=== PATIENT | female | born 2000 | race Two or more races ===

== ENCOUNTER 2024-04-29 10:38 | Inpatient (IN) | payer MEDICAID ==
[~2024-04-29] VITALS: Ht 165.1 cm; Wt 65.0 kg
[~2024-04-29 10:38] MED LIST: ACET-1304 PO; NITR-87 PO
--- NOTE | 2024-04-29 11:29 | DVH ---
BIOPHYSICAL PROFILE HISTORY: PIH TECHNIQUE: Multiple transabdominal real-time grayscale sonographic images through the gravid uterus of the fetus with duplex Doppler color flow and M-mode spectral analysis FINDINGS: BIOPHYSICAL PROFILE: breathing score: 2 movement score: 2 tone score: 2 Quantitative ROJELIO score: 2 (ROJELIO: 13.2 Cm.) Total score: 8 The cervix not well visualized. Single live fetus in vertex presentation. heart rate 151 beats per minute. Anterior placenta without previa or abruption IMPRESSION: Biophysical profile score: 8
[2024-04-29 11:56] LABS: Basophils # (auto) 0.2 10 ^3/uL (0-0.2); Eosinophils # (auto) 0.1 10 ^3/uL (0-0.8); Hemoglobin 8.2 g/dL (12.2-16.2); Lymphocytes # (auto) 2.9 10 ^3/uL (0.4-5.4); Lymphocytes % (auto) 20.9 % (10.0-50.0); Mean Corpuscular Hemoglobin 21.4 pg (28.0-32.0); Monocytes # (auto) 0.7 10 ^3/uL (0-1.3); Nucleated Red Blood Cells % 0.1 %
[2024-04-29 11:57] LABS: Basophils % (auto) 1.4 % (0.0-2.0); Eosinophils % (auto) 0.6 % (0.0-7.0); Hematocrit 26.1 % (36.0-46.0); Mean Corpuscular Hgb Conc. 31.5 g/dL (32.0-36.0); Mean Corpuscular Volume 67.8 fL (80.0-100.0); Monocytes % (auto) 4.9 % (0.0-12.0); Neutrophils % (auto) 72.2 % (37.0-80.0); Platelet Count (auto) 319 10^3/uL (140-450); Red Blood Cells 3.85 10^6/uL (4.0-5.20); Red Cell Distribution Width 19.6 % (11.8-14.3); White Blood Cell 13.9 10^3/uL (4.4-10.8)
[2024-04-29 12:10] LABS: INR 0.94 (0.9-1.15); Partial Thromboplastin Time 22.9 SEC (24.5-34.5)
[2024-04-29 12:32] LABS: Alanine Aminotransferase 37 U/L (7-40); Albumin 4.3 g/dL (3.2-4.8); Alkaline Phosphatase 230 U/L (46-116); Anion Gap 9 (5-15); Aspartate Aminotransferase 30 U/L (13-40); BUN/Creatinine Ratio 10.4 (10.0-20.0); Bilirubin, Total 0.4 mg/dL (0.2-1.0); Blood Urea Nitrogen 7 mg/dL (9-23); Calcium 9.8 mg/dL (8.7-10.4); Carbon Dioxide 21 mmol/L (20-31); Chloride 105 mmol/L (98-107); Glucose 88 mg/dL (74-106); Potassium 4.4 mmol/L (3.5-5.1); Sodium 135 mmol/L (136-145); Uric Acid 3.6 mg/dL (3.1-7.8)
[2024-04-29 12:39] LABS: Platelet Estimate Adequate
[2024-04-29 12:40] LABS: Hypochromia Moderate
[2024-04-29 12:45] LABS: Urine Bacteria FEW /hpf (None Seen); Urine Blood Negative /uL (Negative); Urine Clarity Turbid (Clear); Urine Color Light-Yellow (Yellow); Urine Protein, UAD TRACE (Negative); Urine Specific Gravity 1.008 (1.001-1.035); Urine Urobilinogen Normal (Negative); Urine WBC 44 /hpf (0 - 5)
[2024-04-29 13:02] LABS: Protein, Urine 43.8 mg/dL (1-14)
[2024-04-29 13:05] LABS: Creatinine, Urine 45.72 mg/dL (30.0-125.0); Urine Protein/Creatinine Ratio 0.96
[2024-04-29] MEDS ORDERED: LACTATED RINGER'S 1,000 ML IV SCH (17:15)
[2024-04-29] MEDS ORDERED: LIDOCAINE 2%HCL (LOCAL ANESTH.) INJ 20ML MDV IJ PRN (17:15)
[2024-04-29] MEDS ORDERED: BUTORPHANOL TARTRATE 2 MG/1 ML VIAL IV PRN ×2 (17:15)
[2024-04-29] MEDS ORDERED: hydrALAZINE HCL 20 MG/ML VL IV PRN (17:30)
[2024-04-29] MEDS: LABETALOL HCL 200 MG TAB PO ONE (17:36)
--- NOTE | 2024-04-29 17:44 | DVHHP2 ---
OB CC & HPI Date Date of Admission: Apr 29, 2024 Patient Identification: : 1 Para: 0 EDC: May 12, 2024 EGA: 38.1 Chief Complaints: Reason for admission: induction of labor Indication for induction: medical complication (preeclampsia) History of Present Complaints 24yo IUP@38.1wks was sent down from Dr. Adams's office for preeclampsia labs due to elevated BPs. Pt admitted to L&D for IOL for preeclampsia. Denies UCs/LOF/VB/BACON/vision changes/RUQ pain. Endorses +FM. Pt is a vegetarian. PNC: Routine PNC at [facility] OB, adequate visits, PNC complicated by iron deficiency anemia and now preeclampsia. GTT wnl, dating based on LMP c/w 17wk sono, GBS positive. Past Medical History Cardiac: No pertinent Hx Pulmonary: No pertinent Hx Central Nervous System: No pertinent Hx GI: No pertinent Hx Hemotology/Oncology: Iron deficiency anemia Hepatobiliary: No pertinent Hx Psychiatric: No pertinent Hx Musculoskeletal: No pertinent Hx Rheumotologic: No pertinent Hx Infectious Disease: No peritnent Hx ENT: No pertinent Hx Renal/: No pertinent Hx Endocrine: No pertinent Hx Dermatology: No pertinent Hx Past Surgical History: No pertinent Hx OB History OB History Care: Good Care Ultrasounds: Normal mid trimester US Obstetrical Complications: Pre-eclampsia Allergies: Coded Allergies: NO KNOWN ALLERGIES (Unverified , 04/29/24) Home Meds Discontinued Scripts Acetaminophen (Tylenol Extra Strength Fo) 500 Mg Tab, 500 MG PO TID, #30 TAB Prov:NUNU WALKER 09/20/23 Nitrofurantoin Monohydrate Mac (Macrobid) 100 Mg Cap, 100 MG PO BID, #14 CAP Prov:NUNU WALKER 09/20/23 Home Meds PNV and iron Current Medications Current Medications Medications (Trade) Dose Ordered Sig/Kristyn Route PRN Reason Start Time Stop Time Status Last Admin Labetalol HCl (Normodyne Tablet) 100 mg Q12HR PO 04/29/24 22:00 Lactated Ringer's 1,000 ml @ 125 mls/hr Q8H IV 04/29/24 17:15 Penicillin G Potassium 1412148 units/Dextrose 50 ml @ 100 mls/hr Q4H IV 04/29/24 21:15 Witch Larissa (Tucks) 1 pad PRN PRN TOP PERINEAL AREA DISCOMFORT 04/29/24 17:15 Sodium Lauryl Sulfate (Phisoderm) 240 ml PRN PRN TOP PERINEAL AREA DISCOMFORT 04/29/24 17:15 Benzocaine (Dermoplast) 1 applic PRN PRN TOP PERINEAL AREA DISCOMFORT 04/29/24 17:15 Butorphanol Tartrate (Stadol Injection) 1 mg Q4HPRN PRN IV MODERATE PAIN (4-6 PAIN SCALE) 04/29/24 17:15 Butorphanol Tartrate (Stadol Injection) 2 mg Q4HPRN PRN IV SEVERE PAIN (7-10 PAIN SCALE) 04/29/24 17:15 Lidocaine HCl (Xylocaine) 20 ml ONCE PRN IJ PERINEAL AREA DISCOMFORT 04/29/24 17:15 Misoprostol (Cytotec) 50 mcg Q4HPRN PRN PO CERVICAL RIPENING 04/29/24 17:30 Hydralazine HCl (Apresoline Injection) 5 mg Q20MP PRN IV SBP >160 DBP >95 04/29/24 17:30 Family & Social History Family/Social History Past Family/Social History: denies Blood Type: B+ Rubella: not immune RPR/VDRL: Negative GBS Status: Positive HBsAG: Negative Review of Systems Comments headache Constitutional: No symptom reported Ears, Nose, & Throat: No symptom reported Eyes: No symptom reported Pulmonary/Respiratory: No symptom reported Cardiovascular: No symptom reported Gastrointestinal: No symptom reported Genitourinary: No symptom reported Musculoskeletal: No symptom reported Skin: No symptom reported Psychiatric: No symptom reported Endocrine: No symptom reported Hemotologic/Lymphatic: No symptom reported OB Admission Exam Physical Exam Vitals: Laboratory Tests Test 04/29/24 11:00 04/29/24 11:25 04/29/24 17:27 Range/Units Urine Color Light-yellow Yellow Urine Clarity Turbid H Clear Urine pH 6.0 5.0-9.0 Urine Specific [place] 1.008 1.001-1.035 Urine Protein Trace H Negative Urine Ketones Negative Negative Urine Blood Negative Negative /uL Urine Nitrite Negative Negative Urine Bilirubin Negative Negative Urine Urobilinogen Normal Negative mg/dL Urine Leukocyte Esterase 3+ Negative /uL Urine RBC 2 0 - 4 /hpf Urine WBC 44 0 - 5 /hpf Urine Squamous Epithelial Cells Mod <5 /hpf Urine Bacteria Few H None Seen /hpf Urine Creatinine 45.72 30.0-125.0 mg/dL Urine Protein/Creatinine Ratio 0.96 Urine Glucose Normal Normal mg/dL Urine Total Protein 43.8 H 1-14 mg/dL Urine Opiates Screen Neg NEGATIVE Urine Fentanyl Screen Neg NEGATIVE Urine Barbiturates Screen Neg NEGATIVE Urine Phencyclidine Screen Neg NEGATIVE Urine Amphetamines Screen Neg NEGATIVE Urine Benzodiazepines Screen Neg NEGATIVE Urine Cocaine Screen Neg NEGATIVE Urine Cannabinoids Screen Neg NEGATIVE White Blood Count 13.9 H 4.4-10.8 10^3/uL Red Blood Count 3.85 L 4.0-5.20 10^6/uL Hemoglobin 8.2 L 12.2-16.2 g/dL Hematocrit 26.1 L 36.0-46.0 % Mean Corpuscular Volume 67.8 L 80.0-100.0 fL Mean Corpuscular Hemoglobin 21.4 L 28.0-32.0 pg Mean Corpuscular Hemoglobin Concent 31.5 L 32.0-36.0 g/dL Red Cell Distribution Width 19.6 H 11.8-14.3 % Platelet Count 319 140-450 10^3/uL Mean Platelet Volume 7.7 6.9-10.8 fL Neutrophils (%) (Auto) 72.2 37.0-80.0 % Lymphocytes (%) (Auto) 20.9 10.0-50.0 % Monocytes (%) (Auto) 4.9 0.0-12.0 % Eosinophils (%) (Auto) 0.6 0.0-7.0 % Basophils (%) (Auto) 1.4 0.0-2.0 % Neutrophils # (Auto) 10.0 H 1.6-8.6 10 ^3/uL Lymphocytes # (Auto) 2.9 0.4-5.4 10 ^3/uL Monocytes # (Auto) 0.7 0-1.3 10 ^3/uL Eosinophils # (Auto) 0.1 0-0.8 10 ^3/uL Basophils # (Auto) 0.2 0-0.2 10 ^3/uL Nucleated Red Blood Cells 0.1 % Platelet Estimate Adequate Hypochromasia (manual) Moderate Microcytosis Marked Prothrombin Time 10.0 9.3-11.8 sec Prothrombin Time INR 0.94 0.9-1.15 Activated Partial Thromboplast Time 22.9 L 24.5-34.5 SEC Sodium Level 135 L 136-145 mmol/L Potassium Level 4.4 3.5-5.1 mmol/L Chloride Level 105 98-107 mmol/L Carbon Dioxide Level 21 20-31 mmol/L Anion Gap 9 5-15 Blood Urea Nitrogen 7 L 9-23 mg/dL Creatinine 0.67 0.550-1.02 mg/dL Glomerular Filtration Rate Calc 127 >90 mL/min BUN/Creatinine Ratio 10.4 10.0-20.0 Serum Glucose 88 74-106 mg/dL Uric Acid 3.6 3.1-7.8 mg/dL Calcium Level 9.8 8.7-10.4 mg/dL Total Bilirubin 0.4 0.2-1.0 mg/dL Aspartate Amino Transferase (AST) 30 13-40 U/L Alanine Aminotransferase (ALT) 37 7-40 U/L Alkaline Phosphatase 230 H 46-116 U/L Total Protein 7.0 5.7-8.2 g/dL Albumin 4.3 3.2-4.8 g/dL Rapid Plasma Reagin Pending Treponema pallidum Ab (TP-PA) Pending Hepatitis C Antibody Negative Negative Vital Signs Date Time Temp Pulse Resp B/P (MAP) Pulse Ox O2 Delivery O2 Flow Rate FiO2 04/29/24 17:36 86 142/90 HEENT: TMs Normal, Fontanelles Normal, Nasal Mucosa Normal, Eyes non-injected, Oropharynx Normal, PERRLA, Moist Membranes, EOMI Heart: Rhythm Normal Lungs: Clear Abdomen: Gravid Extremities: Normal Reflexes: Normal Pelvic Exam: SVE by RN: 1/thick/-3, vertex EFW in office: 6lbs 1oz, vertex Heart Rate: 140's Accelerations: Accelerations Present Decelerations: No Decelerations Hose Wrapper Variability: Average (6-25) Contractions on Admission: None OB Plan Plan Admitting Diagnosis: Induction of labor for preeclampsia Plan: Induction Induction Methd: Misoprostol protocol Other Plan: A: 24yo IUP@38.1wks Induction of Labor Preeclampsia Category I EFM Intact Membranes GBS positive P: Admit to L&D Informed consent obtained Discussed risks, benefits, alternatives of IOL for preeclampsia with pt. Pt consents to IOL with PO cytotec. Continuous monitoring Routine labs ordered 2u PRBC on hold RN to start 2nd PIV Start IV PCN when pt is in active labor or ROM Tylenol PO PRN ordered for Headache Pain mgmt PRN Frequent position changes in and out of bed encouraged Limit SVE unless necessary Intrauterine resuscitation PRN Anticipate CNM is co-managing care with Dr. Adams who agrees with POC. RN to call Dr. Adams directly regarding preeclampsia. MARIANO THOMAS CNM Apr 29, 2024 17:44
[2024-04-29 17:54] LABS: Amphetamine Screen, Urine Neg (NEGATIVE); Barbiturate Scree,Urine Neg (NEGATIVE); Benzodiazephine Screen, Urine Neg (NEGATIVE); Cannabinoid Screen, Urine Neg (NEGATIVE); Cocaine Screen, Urine Neg (NEGATIVE); Opiate Scree,Urine Neg (NEGATIVE); Phencyclidine Screen, Urine Neg (NEGATIVE)
[2024-04-29] MEDS: miSOPROStol 50 MCG per PRE-CUT 1/2 TAB PO PRN (18:23)
[2024-04-29] MEDS: PHISODERM TOP SOLN 240ML BTL TOP PRN (18:25)
[2024-04-29] MEDS: WITCH HAZEL-GLYCERIN PAD TOP PRN (18:25)
[2024-04-29] MEDS: DERMOPLAST 60ML BOTTLE TOP PRN (18:25)
[2024-04-29] MEDS ORDERED: CARBOPROST TROMETHAMINE 250 MCG/1ML VIAL IM PRN (19:00)
[2024-04-29] MEDS ORDERED: METHYLERGONOVINE MALEATE 0.2 MG/ML AMP IM PRN (19:00)
[2024-04-29] MEDS ORDERED: NALBUPHINE HCL 10 MG/1ml INJECTION IV PRN (19:00)
[2024-04-29] MEDS: ACETAMINOPHEN 325 MG TAB PO PRN (19:34)
[2024-04-29] MEDS: LACTATED RINGER'S 1,000 ML IV SCH (19:36)
[2024-04-29] MEDS ORDERED: PENICILLIN G POTASSIUM 2,500,000 UNITS in D5W 5% 50 ML IV SCH (21:15)
[2024-04-29] MEDS ORDERED: LABETALOL HCL 200 MG TAB PO SCH (22:00)
--- NOTE | 2024-04-29 23:45 | DVHPN2 ---
CNM Labor Progress Note Date and Time Seen Date Seen: Apr 29, 2024 Time Seen: 22:33 Subjective Patient reports: Feels worse Subjective Comment Pt denies headache. Pt feels more UC pain now, still tolerable. Pt explained west balloon for cervical ripening, pt consents to placement. Objective Vital Signs VSS 2nd PIV in place, saline locked Monitoring Method Monitoring Method: External Heart Rate Heart Rate Baseline: 160 Heart Rate Variability: Moderate Presence of FHR Accelerations: Yes (prolonged) Presence of FHR Decelerations: No Are all 5 Components of the FH: Yes Contractions Contractions Frequency: Other (q1-3 min) Duration of Contraction: 60 Contractions Intensity: Moderate Contractions Resting Tone: Relaxed Membranes Membranes: Intact Vaginal Exam Vag Exam Deferred: No (west CRB placed with 60ml NS) Vaginal Exam Dilation: 2 Vaginal Exam Effacement: 50 Vaginal Exam Station: -1 Vaginal Exam Presentation: VTX Vaginal Exam Show: Small Medications Medications - Pitocin: No Medications - Pain Medications: PRN Medication - Epidural: No Medication - Other 1 dose of PO cytotec Lab Results Lab Results Vital Signs Date Time Temp Pulse Resp B/P (MAP) Pulse Ox O2 Delivery O2 Flow Rate FiO2 04/29/24 17:36 86 142/90 Current Medications Medications (Trade) Dose Ordered Sig/Kristyn Start Time Stop Time Status Last Admin Dose Admin Labetalol HCl (Normodyne Tablet) 100 mg Q12HR 04/29/24 22:00 04/29/24 22:16 DC Labetalol HCl (Normodyne Tablet) 100 mg ONCE ONCE 04/29/24 17:15 04/29/24 17:24 DC 04/29/24 17:36 100 MG Lactated Ringer's 1,000 ml @ 125 mls/hr Q8H 04/29/24 17:15 04/29/24 19:04 DC Penicillin G Potassium 50 ml @ 100 mls/hr ONCE ONCE 04/29/24 17:15 04/29/24 17:44 DC Penicillin G Potassium [id number] units/Dextrose 50 ml @ 100 mls/hr Q4H 04/29/24 21:15 Carmen Dias (Jay) 1 pad PRN PRN 04/29/24 17:15 04/29/24 18:25 1 PAD Sodium Lauryl Sulfate (Phisoderm) 240 ml PRN PRN 04/29/24 17:15 04/29/24 18:25 240 ML Benzocaine (Dermoplast) 1 applic PRN PRN 04/29/24 17:15 04/29/24 18:25 1 APPLIC Butorphanol Tartrate (Stadol Injection) 1 mg Q4HPRN PRN 04/29/24 17:15 04/29/24 19:04 DC Butorphanol Tartrate (Stadol Injection) 2 mg Q4HPRN PRN 04/29/24 17:15 04/29/24 19:04 DC Lidocaine HCl (Xylocaine) 20 ml ONCE PRN 04/29/24 17:15 Misoprostol (Cytotec) 50 mcg Q4HPRN PRN 04/29/24 17:30 04/29/24 18:23 50 MCG Hydralazine HCl (Apresoline Injection) 5 mg Q20MP PRN 04/29/24 17:30 Lactated Ringer's 1,000 ml @ 75 mls/hr [id number] 04/29/24 19:00 04/29/24 19:36 75 MLS/HR Acetaminophen (Tylenol Tablet) 650 mg Q4HP PRN 04/29/24 19:00 04/29/24 19:34 650 MG Ondansetron HCl (Zofran) 4 mg Q6HPRN PRN 04/29/24 19:00 Nalbuphine HCl (Nubain) 10 mg Q4HP PRN 04/29/24 19:00 Carboprost Tromethamine (Hemabate) 250 mcg Q20M PRN 04/29/24 19:00 04/29/24 19:41 DC Methylergonovine Maleate (Methergine) 0.2 mg Q8HP PRN 04/29/24 19:00 04/29/24 19:48 DC Oxytocin 500 ml @ 999 mls/hr Q31M ONCE 04/30/24 22:00 04/30/24 22:30 Oxytocin 500 ml @ 125 mls/hr Q4H ONCE 04/30/24 21:15 05/01/24 01:14 Labetalol HCl (Normodyne Tablet) 100 mg Q12HR 04/30/24 06:00 Laboratory Tests Test 04/29/24 17:27 04/29/24 11:04/29/24 11:00 Range/Units Rapid Plasma Reagin Pending Treponema pallidum Ab (TP-PA) Pending Hepatitis C Antibody Negative Negative White Blood Count 13.9 H 4.4-10.8 10^3/uL Red Blood Count 3.85 L 4.0-5.20 10^6/uL Hemoglobin 8.2 L 12.2-16.2 g/dL Hematocrit 26.1 L 36.0-46.0 % Mean Corpuscular Volume 67.8 L 80.0-100.0 fL Mean Corpuscular Hemoglobin 21.4 L 28.0-32.0 pg Mean Corpuscular Hemoglobin Concent 31.5 L 32.0-36.0 g/dL Red Cell Distribution Width 19.6 H 11.8-14.3 % Platelet Count 319 140-450 10^3/uL Mean Platelet Volume 7.7 6.9-10.8 fL Neutrophils (%) (Auto) 72.2 37.0-80.0 % Lymphocytes (%) (Auto) 20.9 10.0-50.0 % Monocytes (%) (Auto) 4.9 0.0-12.0 % Eosinophils (%) (Auto) 0.6 0.0-7.0 % Basophils (%) (Auto) 1.4 0.0-2.0 % Neutrophils # (Auto) 10.0 H 1.6-8.6 10 ^3/uL Lymphocytes # (Auto) 2.9 0.4-5.4 10 ^3/uL Monocytes # (Auto) 0.7 0-1.3 10 ^3/uL Eosinophils # (Auto) 0.1 0-0.8 10 ^3/uL Basophils # (Auto) 0.2 0-0.2 10 ^3/uL Nucleated Red Blood Cells 0.1 % Platelet Estimate Adequate Hypochromasia (manual) Moderate Microcytosis Marked Prothrombin Time 10.0 9.3-11.8 sec Prothrombin Time INR 0.94 0.9-1.15 Activated Partial Thromboplast Time 22.9 L 24.5-34.5 SEC Sodium Level 135 L 136-145 mmol/L Potassium Level 4.4 3.5-5.1 mmol/L Chloride Level 105 98-107 mmol/L Carbon Dioxide Level 21 20-31 mmol/L Anion Gap 9 5-15 Blood Urea Nitrogen 7 L 9-23 mg/dL Creatinine 0.67 0.550-1.02 mg/dL Glomerular Filtration Rate Calc 127 >90 mL/min BUN/Creatinine Ratio 10.4 10.0-20.0 Serum Glucose 88 74-106 mg/dL Uric Acid 3.6 3.1-7.8 mg/dL Calcium Level 9.8 8.7-10.4 mg/dL Total Bilirubin 0.4 0.2-1.0 mg/dL Aspartate Amino Transferase (AST) 30 13-40 U/L Alanine Aminotransferase (ALT) 37 7-40 U/L Alkaline Phosphatase 230 H 46-116 U/L Total Protein 7.0 5.7-8.2 g/dL Albumin 4.3 3.2-4.8 g/dL Urine Color Light-yellow Yellow Urine Clarity Turbid H Clear Urine pH 6.0 5.0-9.0 Urine Specific [place] 1.008 1.001-1.035 Urine Protein Trace H Negative Urine Ketones Negative Negative Urine Blood Negative Negative /uL Urine Nitrite Negative Negative Urine Bilirubin Negative Negative Urine Urobilinogen Normal Negative mg/dL Urine Leukocyte Esterase 3+ Negative /uL Urine RBC 2 0 - 4 /hpf Urine WBC 44 0 - 5 /hpf Urine Squamous Epithelial Cells Mod <5 /hpf Urine Bacteria Few H None Seen /hpf Urine Creatinine 45.72 30.0-125.0 mg/dL Urine Protein/Creatinine Ratio 0.96 Urine Glucose Normal Normal mg/dL Urine Total Protein 43.8 H 1-14 mg/dL Urine Opiates Screen Neg NEGATIVE Urine Fentanyl Screen Neg NEGATIVE Urine Barbiturates Screen Neg NEGATIVE Urine Phencyclidine Screen Neg NEGATIVE Urine Amphetamines Screen Neg NEGATIVE Urine Benzodiazepines Screen Neg NEGATIVE Urine Cocaine Screen Neg NEGATIVE Urine Cannabinoids Screen Neg NEGATIVE Assessment Assessment 24yo IUP@38.1wks Induction of Labor Preeclampsia Category I EFM Intact Membranes GBS positive Plan Plan RN to apply traction to west CRB q1 hr Discussed starting IV pitocin when the UC pattern permits to continue IOL. Pt agrees with POC. Continuous monitoring 2u PRBC on hold Start IV PCN when pt is in active labor or ROM Pain mgmt PRN Frequent position changes in and out of bed encouraged Limit SVE unless necessary Intrauterine resuscitation PRN Anticipate CNM is co-managing care with Dr. Adams who agrees with POC. RN to call Dr. Adams directly regarding preeclampsia. Plan discussed with: Patient MARTHAMARIANO CONNORS Apr 29, 2024 23:45
[2024-04-30] MEDS ORDERED: ePHEDrine SULFATE 50 MG/ML AMP IV ONE (00:15)
[2024-04-30] MEDS ORDERED: LIDOCAINE HCL 2 %PF INJ 10ML AMP IJ ONE (00:15)
[2024-04-30] MEDS ORDERED: LACTATED RINGER'S 500 ML IV ONE (00:15)
[2024-04-30] MEDS ORDERED: NALOXONE HCL 0.4 MG/ML VIAL IV ONE (00:15)
[2024-04-30] MEDS ORDERED: TERBUTALINE SULFATE 1 MG/ML 1ML VIAL SC PRN (03:15)
[2024-04-30] MEDS: MAGNESIUM SULFATE 100 ML IV ONE (06:00)
[2024-04-30] MEDS: MAGNESIUM SULFATE 0 ML IV ONE (06:00)
[2024-04-30] MEDS ORDERED: LORazepam 2MG/ML-1ML VIAL IV ONE (06:00)
[2024-04-30] MEDS: LABETALOL HCL 200 MG TAB PO SCH (06:00)
[2024-04-30] MEDS: fentaNYL CITRATE 100 MCG/2 ML VL IV ONE (06:06)
[2024-04-30] MEDS: ROPIVACAINE HCL 200 ML ONE (06:08)
--- NOTE | 2024-04-30 06:17 | EPIDURAL ---
Anesthesia Procedural Note - Epidural Informed consent obtained?: Yes Medication Administered: Fentanyl 100 mcg Sterile prept drape: Yes Spinal level of insertion: L4-L5 Test dose of lidocaine & Epine: Negative Infusion started: Yes Start time: 04:50 End time: 05:50 Procedure description Procedure description: Called for labor analgesia. Chart reviewed, patient examined, history taken at 0450. Patient is here for induction of labor for pre-E, headache and anemia. Informed consent for CSE obtained (BP 140/100 HR 105 spO2 95). Sitting position, sterile prep and drape. Time out done. L4-5 space infiltrated with 1% lido. Patient unable to remain still, continues to move, reach back to the sterile field. Procedure terminated at 0507. I communicated to the patient that we could try again if she wished but that she needed to remain in position and still for her safety. Patient reports that she wants to try again. Sitting position at 0530 (BP 146/90 HR 100 spO2 96). Sterile prep and drape. L4-5 space infiltrated with 1% lido. Epidural needle placed with JONATHAN at 5cm. Catheter secured at 10cm. Aspiration and test dose (3cc 1.5% lido with epi) negative at 0538 (BP 138/83 HR 103 spO2 96). 100 mcg fentanyl given via epidural and patient reports relief of her labor pain (BP 126/61 HR 87 spO2 98). Infusion started at 0550. Will follow as needed. LIUDMILA BARROW MD Apr 30, 2024 06:16
[2024-04-30] MEDS: ONDANSETRON HCL 4 MG/2 ML VIAL IV PRN (06:23)
[2024-04-30] MEDS: MAGNESIUM SULFATE 40MG/ML 1,000 ML IV SCH (06:24)
[2024-04-30] MEDS: PENICILLIN G POT 5MIL/D5 50ML 50 ML IV ONE (06:35)
[2024-04-30] MEDS: LACT. RINGERS/OXYTOCIN 20UNITS 1,000 ML IV SCH (07:42)
--- NOTE | 2024-04-30 07:47 | DVHPN2 ---
Chief Complaints Patient reports: No new complaints, Feels worse Nursing reports: No new complaints Objective Vitals Vital Signs Date Time Temp Pulse Resp B/P (MAP) Pulse Ox O2 Delivery O2 Flow Rate FiO2 04/30/24 06:06 135/84 04/30/24 06:00 75 04/30/24 05:58 98.3 Medications Current Medications Medications (Trade) Dose Ordered Sig/Kristyn Route PRN Reason Start Time Stop Time Status Last Admin Acetaminophen (Tylenol Tablet) 650 mg Q4HP PRN PO PAIN SCALE 1-3 OR TEMP>100.4 04/29/24 19:00 04/30/24 05:58 Benzocaine (Dermoplast) 1 applic PRN PRN TOP PERINEAL AREA DISCOMFORT 04/29/24 17:15 04/29/24 18:25 Hydralazine HCl (Apresoline Injection) 5 mg Q20MP PRN IV SBP >160 DBP >95 04/29/24 17:30 Labetalol HCl (Normodyne Tablet) 100 mg Q12HR PO 04/30/24 06:00 Lactated Ringer's 1,000 ml @ 75 mls/hr [id number] IV 04/29/24 19:00 04/30/24 03:06 Lidocaine HCl (Xylocaine) 20 ml ONCE PRN IJ PERINEAL AREA DISCOMFORT 04/29/24 17:15 Magnesium Sulfate 1,000 ml @ 50 mls/hr Q20H IV 04/30/24 06:00 04/30/24 06:24 Misoprostol (Cytotec) 50 mcg Q4HPRN PRN PO CERVICAL RIPENING 04/29/24 17:30 04/29/24 18:23 Nalbuphine HCl (Nubain) 10 mg Q4HP PRN IV MODERATE PAIN (4-6 PAIN SCALE) 04/29/24 19:00 Ondansetron HCl (Zofran) 4 mg Q6HPRN PRN IV NAUSEA / VOMITING 04/29/24 19:00 04/30/24 06:23 Oxytocin 1,000 ml @ 6 ml/hr Q24H IV 04/30/24 03:15 04/30/24 07:42 Penicillin G Potassium [id number] units/Dextrose 50 ml @ 100 mls/hr Q4H IV 04/30/24 08:30 UNV Sodium Lauryl Sulfate (Phisoderm) 240 ml PRN PRN TOP PERINEAL AREA DISCOMFORT 04/29/24 17:15 04/29/24 18:25 Terbutaline Sulfate (Brethine Inj) 0.25 mg ONCE PRN SC Uterine tachysystole 04/30/24 03:15 Carmen Dias (Tucks) 1 pad PRN PRN TOP PERINEAL AREA DISCOMFORT 04/29/24 17:15 04/29/24 18:25 Others ve-6cm/90/-1 Studies Laboratory Tests 04/29/24 11:25 Test 04/29/24 11:25 Range/Units Serum Glucose 88 74-106 mg/dL Ass/Plan Assessment iol for pih anemia Plan rec epidural cont with mg hold bp NAOMI Pacheco DO Apr 30, 2024 07:47
[2024-04-30] MEDS: PENICILLIN G POT 5MILLION UNIT VIAL ONE (08:43)
[2024-04-30] MEDS: STERILE WATER 10 ML ONE (08:44)
[2024-04-30] MEDS: PENICILLIN G POTASSIUM 2,500,000 UNITS in D5W 5% 50 ML IV SCH (08:47)
[2024-04-30] MEDS ORDERED: ONDANSETRON ODT 4 MG TAB PO PRN (12:30)
[2024-04-30] MEDS ORDERED: ACETAMINOPHEN 325 MG TAB PO PRN (12:30)
[2024-04-30] MEDS: LACT. RINGERS/OXYTOCIN 20UNITS 500 ML IV ONE ×2 (12:52)
--- NOTE | 2024-04-30 13:17 | LDN2 ---
Labor and Delivery Note Date 04/30/24 Age 24 1 Para 1 EDC 12-2 EGA 38wks Diagnosis induction of labor for pih Vaginal Delivery: VTX Vacuum Assisted: No Placenta: Spontaneous Apgars 8-9 Nuchal Cord Transected: No Amniotic Fluid: Clear Anesthesia epidural Episiotomy: No Extension: Yes Repaired with 2-0 chromic EBL 300ml Labs Blood Bank 04/29/24 17:27: Blood Type B POSITIVE Complications none Conditions stable Comments/Significant Med Juan spec exam no cxal lac NAOMI RIVERA DO Apr 30, 2024 13:17
[2024-04-30] MEDS: IBUPROFEN 600 MG TAB PO PRN (13:37)
[2024-04-30 15:30] VITALS: BP 130/68; PULSE 90; RESP 17; TEMP 99.4; O2SAT 98
[2024-04-30] MEDS ORDERED: FERR-7 PO (16:18)
[2024-04-30] MEDS ORDERED: PREN-96 PO (16:18)
[2024-04-30 19:00] VITALS: BP 128/86; PULSE 80; RESP 16; TEMP 98.1; O2SAT 98
[2024-04-30 19:25] VITALS: RESP 18; O2SAT 98
[2024-04-30] MEDS: LACTATED RINGER'S 1,000 ML IV SCH (19:30)
[2024-04-30] MEDS: LORazepam 2MG/ML-1ML VIAL IV ONE (19:30)
[2024-04-30 21:27] VITALS: BP 128/62; PULSE 82; RESP 18; TEMP 99.3; O2SAT 95
[2024-04-30] MEDS ORDERED: MAGNESIUM SULFATE 40MG/ML 1,000 ML IV SCH (21:45)
[2024-04-30] MEDS: DOCUSATE SOD 100 MG CAP PO SCH (22:24)
[2024-04-30 22:30] VITALS: BP 116/58; PULSE 92; RESP 18; TEMP 98.9; O2SAT 97
[2024-04-30] MEDS ORDERED: IBU600T PO (23:08)
[2024-04-30] MEDS ORDERED: DOCU-265 PO (23:08)
[2024-04-30 23:30] VITALS: BP 103/56; PULSE 82; RESP 18; O2SAT 96
[2024-05-01] VITALS (10 sets, daily range): BP systolic 111–130; BP diastolic 57–88; PULSE 76–99; RESP 15–18; TEMP 97.8–99.4; O2SAT 96–98
--- NOTE | 2024-05-01 00:19 | DVHPN2 ---
Progress Note Date Seen: May 01, 2024 Subjective S: bleeding is less, pain is managed with PO meds, no concerns with urinating on bedpan, on bedrest due to IV magnesnium sulfate, well. Pt denies BACON/vision changes/RUQ pain. vital signs Vital Sign Date Time Temp Pulse Resp B/P (MAP) Pulse Ox O2 Delivery O2 Flow Rate FiO2 04/30/24 23:30 82 18 103/56 (72) 96 04/30/24 23:30 Room Air 04/30/24 22:30 98.9 98.9 Total Intake and Output 04/30/24 04/30/24 05/01/24 15:00 23:00 07:00 Output Total 1100 ml Balance -1100 ml medications Current Medications Medications Dose Ordered Sig/Kristyn Route Start Time Stop Time Status Last Admin Dose Admin Carmen Dias 1 pad PRN PRN TOP 04/29/24 17:15 04/29/24 18:25 1 PAD Sodium Lauryl Sulfate 240 ml PRN PRN TOP 04/29/24 17:15 04/29/24 18:25 240 ML Benzocaine 1 applic PRN PRN TOP 04/29/24 17:15 04/29/24 18:25 1 APPLIC Hydralazine HCl 5 mg Q20MP PRN IV 04/29/24 17:30 Labetalol HCl 100 mg Q12HR PO 04/30/24 06:00 Ibuprofen 600 mg Q6HP PRN PO 04/30/24 12:30 04/30/24 13:37 600 MG Acetaminophen 650 mg Q4HP PRN PO 04/30/24 12:30 Ondansetron HCl 4 mg Q4HPRN PRN PO 04/30/24 12:30 Docusate Sodium 200 mg HS PO 04/30/24 22:00 04/30/24 22:24 200 MG Lactated Ringer's 1,000 ml @ 75 mls/hr [id number] IV 04/30/24 19:30 04/30/24 19:30 75 MLS/HR Magnesium Sulfate 1,000 ml @ 50 mls/hr Q20H IV 04/30/24 21:45 05/01/24 07:30 laboratory and microbiology Laboratory Tests 04/29/24 11:25 Test 04/29/24 11:25 Range/Units Serum Glucose 88 74-106 mg/dL Objective O: VSS, normotensive Chest: heart sounds normal and lung sounds clear bilaterally Abd: soft, non-tender, fundus at U/firm/midline, active bowel sounds, no rebound or guarding Perineum: sutures intact, edges well approximated, no erythema/edema noted Ext: 1+ BLE edema, Non-tender, 2+ BLE DTRs Lochia: minimal Magnesium sulfate 2g/hr IV infusing from 1929, per Dr. Adams's orders it will be on for 12 hours, strict I&O, and therapeutic magnesium level blood draws q4 hrs. Seizure precautions continued See lab results Problems(with codes): (1) (normal spontaneous vaginal delivery) (2) Preeclampsia Assessment/Plan A: 24yo now PPD#1 s/p Preeclampsia P: Continue with routine PP care RN is to call Dr. Adams directly regarding preeclampsia CNM is co-managing care with Dr. Adams Plan discussed with: Patient MARIANO THOMAS DORY May 01, 2024 00:19
[2024-05-01 06:07] LABS: RPR Non Reactive (Non Reactive)
[2024-05-01 09:10] LABS: Basophils # (auto) 0 10 ^3/uL (0-0.2); Mean Corpuscular Hemoglobin 20.7 pg (28.0-32.0); Monocytes # (auto) 0.9 10 ^3/uL (0-1.3)
[2024-05-01 09:12] LABS: Basophils % (auto) 0.2 % (0.0-2.0); Eosinophils # (auto) 0 10 ^3/uL (0-0.8); Eosinophils % (auto) 0.2 % (0.0-7.0); Hemoglobin 7.4 g/dL (12.2-16.2); Lymphocytes # (auto) 2.5 10 ^3/uL (0.4-5.4); Lymphocytes % (auto) 13.3 % (10.0-50.0); Mean Corpuscular Hgb Conc. 30.8 g/dL (32.0-36.0); Mean Corpuscular Volume 67.4 fL (80.0-100.0); Monocytes % (auto) 4.9 % (0.0-12.0); Neutrophils # (auto) 15.4 10 ^3/uL (1.6-8.6); Neutrophils % (auto) 81.4 % (37.0-80.0); Nucleated Red Blood Cells % 0.1 %; Platelet Count (auto) 306 10^3/uL (140-450); Red Blood Cells 3.57 10^6/uL (4.0-5.20); White Blood Cell 18.9 10^3/uL (4.4-10.8)
[2024-05-01 10:55] LABS: Platelet Estimate Adequate
[2024-05-01 11:00] LABS: Hypochromia Moderate
[2024-05-01] MEDS: FERROUS SULFATE 325mg EC TAB PO SCH (17:28)
[2024-05-02 03:09] VITALS: BP 117/58; PULSE 78; RESP 16; TEMP 98.6; O2SAT 98
[2024-05-02 06:33] VITALS: BP 125/74; PULSE 90; RESP 18; TEMP 97.4; O2SAT 98
[2024-05-02] MEDS ORDERED: LABE200T10 PO (07:39)
--- NOTE | 2024-05-02 07:43 | DVHDS2 ---
Discharge Summary Date of Admission Apr 29, 2024 at 17:15 Date of Discharge: Apr 29, 2024 Admitting Diagnosis Term , pre-eclampsia Chronic anemia Labs/Diagnostic Data: Laboratory Results Test 05/01/24 08:27 04/30/24 17:32 04/30/24 12:55 04/29/24 17:27 White Blood Count 18.9 10^3/uL (4.4-10.8) Red Blood Count 3.57 10^6/uL (4.0-5.20) Hemoglobin 7.4 g/dL (12.2-16.2) Hematocrit 24.0 % (36.0-46.0) Mean Corpuscular Volume 67.4 fL (80.0-100.0) Mean Corpuscular Hemoglobin 20.7 pg (28.0-32.0) Mean Corpuscular Hemoglobin Concent 30.8 g/dL (32.0-36.0) Red Cell Distribution Width 20.0 % (11.8-14.3) Platelet Count 306 10^3/uL (140-450) Mean Platelet Volume 7.6 fL (6.9-10.8) Neutrophils (%) (Auto) 81.4 % (37.0-80.0) Lymphocytes (%) (Auto) 13.3 % (10.0-50.0) Monocytes (%) (Auto) 4.9 % (0.0-12.0) Eosinophils (%) (Auto) 0.2 % (0.0-7.0) Basophils (%) (Auto) 0.2 % (0.0-2.0) Neutrophils # (Auto) 15.4 10 ^3/uL (1.6-8.6) Lymphocytes # (Auto) 2.5 10 ^3/uL (0.4-5.4) Monocytes # (Auto) 0.9 10 ^3/uL (0-1.3) Eosinophils # (Auto) 0 10 ^3/uL (0-0.8) Basophils # (Auto) 0 10 ^3/uL (0-0.2) Nucleated Red Blood Cells 0.1 % Platelet Estimate Adequate Hypochromasia (manual) Moderate Microcytosis Moderate Magnesium Level 4.2 mg/dL (1.6-2.6) Magnesium Lvl (Mg Sulfate Therapy) 3.52 mg/dL (4.0-7.1) POC Glucose 94 mg/dl (70-106) Rapid Plasma Reagin Non reactive (Non Reactive) Hepatitis C Antibody Negative (Negative) Test 04/29/24 11:25 04/29/24 11:00 Prothrombin Time 10.0 sec (9.3-11.8) Prothrombin Time INR 0.94 (0.9-1.15) Activated Partial Thromboplast Time 22.9 SEC (24.5-34.5) Sodium Level 135 mmol/L (136-145) Potassium Level 4.4 mmol/L (3.5-5.1) Chloride Level 105 mmol/L (98-107) Carbon Dioxide Level 21 mmol/L (20-31) Anion Gap 9 (5-15) Blood Urea Nitrogen 7 mg/dL (9-23) Creatinine 0.67 mg/dL (0.550-1.02) Glomerular Filtration Rate Calc 127 mL/min (>90) BUN/Creatinine Ratio 10.4 (10.0-20.0) Serum Glucose 88 mg/dL (74-106) Uric Acid 3.6 mg/dL (3.1-7.8) Calcium Level 9.8 mg/dL (8.7-10.4) Total Bilirubin 0.4 mg/dL (0.2-1.0) Aspartate Amino Transferase (AST) 30 U/L (13-40) Alanine Aminotransferase (ALT) 37 U/L (7-40) Alkaline Phosphatase 230 U/L (46-116) Total Protein 7.0 g/dL (5.7-8.2) Albumin 4.3 g/dL (3.2-4.8) Urine Color Light-yellow (Yellow) Urine Clarity Turbid (Clear) Urine pH 6.0 (5.0-9.0) Urine Specific [place] 1.008 (1.001-1.035) Urine Protein Trace (Negative) Urine Ketones Negative (Negative) Urine Blood Negative /uL (Negative) Urine Nitrite Negative (Negative) Urine Bilirubin Negative (Negative) Urine Urobilinogen Normal mg/dL (Negative) Urine Leukocyte Esterase 3+ /uL (Negative) Urine RBC 2 /hpf (0 - 4) Urine WBC 44 /hpf (0 - 5) Urine Squamous Epithelial Cells Mod /hpf (<5) Urine Bacteria Few /hpf (None Seen) Urine Creatinine 45.72 mg/dL (30.0-125.0) Urine Protein/Creatinine Ratio 0.96 Urine Glucose Normal mg/dL (Normal) Urine Total Protein 43.8 mg/dL (1-14) Urine Opiates Screen Neg (NEGATIVE) Urine Fentanyl Screen Neg (NEGATIVE) Urine Barbiturates Screen Neg (NEGATIVE) Urine Phencyclidine Screen Neg (NEGATIVE) Urine Amphetamines Screen Neg (NEGATIVE) Urine Benzodiazepines Screen Neg (NEGATIVE) Urine Cocaine Screen Neg (NEGATIVE) Urine Cannabinoids Screen Neg (NEGATIVE) Other Laboratory Tests 05/01/24 08:27 04/29/24 11:25 Brief Hx & Hospital Course: Induction of labor, Magnesium sulfate drip in labor BPs controlled on oral Labetalol 100mg PO BID Hb 7.4 but asymptomatic, taking Iron Sulfate orally Normal bowel/bladder function Operations or Procedures Induction of labor, BP controlled H/H low, Hb 7.4, asymptomatic discharged in stable condition Condition at Discharge: Stable Final Diagnosis/Problems List Term , delivered Pre-eclampsia Chronic anemia Precipitous drop in H/H Discharge Disposition: Home Discharge Instruct/Medications Diet: Regular Activity: No Restrictions, As Tolerated Activity comment: Pelvic rest x 6 wk Follow Up/Referral: [address] Adams in clinic for BP check Medications: Labetalol 100mg BID Iron sulfate 325mg BID Ibuprofen PRN Discharge Statement: "Patient was advised to return to the ER or call 911 if any headaches, dizziness, shortness of breath, chest pain, abdominal pain, bleeding, fevers, or worsening of medical condition. Patient was counseled about treatment plan, medications, possible side effects, patientverbalized understanding. All questions were answered to the best of my ability. This discharge took greater then 30 minutes in planning, reviewing documentation, counseling the patient, and discussing with other team members." ASSESSMENT ASSESSMENT Assessment Term , delivered Pre-eclampsia Chronic anemia Precipitous drop in H/H JIM JEAN BAPTISTE DO May 02, 2024 07:43
[2024-05-02] MEDS: BISACODYL 10 MG RECT SUPP PR PRN (08:18)
[2024-05-02 08:39] LABS: Eosinophils # (auto) 0.2 10 ^3/uL (0-0.8); Mean Corpuscular Hemoglobin 20.3 pg (28.0-32.0); Monocytes # (auto) 0.7 10 ^3/uL (0-1.3); Neutrophils # (auto) 9.9 10 ^3/uL (1.6-8.6)
[2024-05-02 08:41] LABS: Basophils # (auto) 0 10 ^3/uL (0-0.2); Basophils % (auto) 0.2 % (0.0-2.0); Eosinophils % (auto) 1.4 % (0.0-7.0); Hematocrit 23.2 % (36.0-46.0); Lymphocytes # (auto) 2.6 10 ^3/uL (0.4-5.4); Lymphocytes % (auto) 19.4 % (10.0-50.0); Mean Corpuscular Hgb Conc. 29.9 g/dL (32.0-36.0); Monocytes % (auto) 5.5 % (0.0-12.0); Neutrophils % (auto) 73.5 % (37.0-80.0); Nucleated Red Blood Cells % 0.1 %; Platelet Count (auto) 297 10^3/uL (140-450); Red Blood Cells 3.42 10^6/uL (4.0-5.20); White Blood Cell 13.4 10^3/uL (4.4-10.8)
[2024-05-02 08:43] LABS: Red Cell Distribution Width 20.3 % (11.8-14.3)
[2024-05-02 09:34] VITALS: BP 126/83; PULSE 89; RESP 18; TEMP 97.4; O2SAT 98
[2024-05-02] MEDS ORDERED: MEASLES, MUMPS & RUBELLA VAC(MMRII) 0.5ML SC ONE (09:39)
[2024-05-02] MEDS: MEASLES, MUMPS & RUBELLA VAC(MMRII) 0.5ML SC ONE (09:47)
[2024-05-02] MEDS: TETANUS-DIPTH-ACEL PERTUSSIS 0.5ML SYR Tdap IM ONE (09:49)
[2024-05-02 10:06] LABS: Treponema Pallidum Ab LC Non Reactive (Non Reactive)
[2024-05-02 10:07] LABS: Platelet Estimate Adequate
[2024-05-02 10:08] LABS: Hypochromia Moderate
== END 2024-05-02 12:16 | disposition home or self-care (01) | DRG 560 ==
LOC: LDRP 10:38 → UNDOADMOB 10:38 → LDRP 13:23 → OBSVTOIN 17:15 → LDRP 17:15
PROVIDERS: ADMIT Obstetrics & Gynecology; ATTEND Obstetrics & Gynecology
PROC: 10E0XZZ Delivery of Products of Conception, External Approach (ICD-10-PCS; principal; 2024-04-30)
PROC: 0KQM0ZZ Repair Perineum Muscle, Open Approach (ICD-10-PCS; 2024-04-30)
PROC: 3E0R3BZ Introduction of Anesthetic Agent into Spinal Canal, Percutaneous Approach (ICD-10-PCS; 2024-04-30)
PROC: 00HU33Z Insertion of Infusion Device into Spinal Canal, Percutaneous Approach (ICD-10-PCS; 2024-04-30)
PROC: 3E0DXGC Introduction of Other Therapeutic Substance into Mouth and Pharynx, External Approach (ICD-10-PCS; 2024-04-30)
DX: O14.94 Unspecified pre-eclampsia, complicating childbirth (principal); Z37.0 Single live birth; R71.0 Precipitous drop in hematocrit; O70.1 Second degree perineal laceration during delivery; O99.824 Streptococcus B carrier state complicating childbirth; Z3A.38 38 weeks gestation of pregnancy; O99.02 Anemia complicating childbirth
CPT/HCPCS: 36415; 59025; 59200; 59409; 62282; 76818; 80053; 80307; 81001; 82570; 82962; 83735; 84156; 84550; 85025; 85610; 85730; 86592; 86780; 86803; 86850; 86900; 86901; 86920; 90715; 94760; 94762; 96360; 96361; 96365; 96366; G0378; J2405; J2540; J2590; J7060